=== PATIENT | female | born 1955 | race American Indian/Alaskan Native ===

== ENCOUNTER 2018-02-07 08:54 | Outpatient (CLI) | payer MEDICARE ==
--- NOTE | 2018-02-07 13:50 | Mammography Report ---
BONE DEXA:02/07/18 08:54:00 CLINICAL: Postmenopausal. No comparison. TECHNIQUE: Two site bone DEXA performed on an Hologic scanner. FINDINGS: The average BMD of the left forearm is 0.667g/cm squared with a T-score of +2.0 and a Z-score of +3.6. The average BMD of the left hip is 1.155g/cm squared with a T-score of +0.8 and a Z-score of +1.7. IMPRESSION: WHO classification: Normal with average fracture risk based on both left forearm and left hip measurements. RECOMMENDATION: Clinical correlation and routine screening. DEFINITIONS: BMD = Bone Mineral Density T-score = BMD related to mean peak bone mass of young adult (mean expressed in Standard Deviation) Z-score = Age matched BMD expressed in SD World Health Organization (WHO) Diagnostic Criteria Normal T-score > -1 SD Osteopenia T-score between -1 and -2.4 SD Osteoporosis T-score -2.5 SD or below NOTE: BMD is not the only risk factor for fracture. One should also consider factors such as the patient's age, risk of falling, previous osteoporotic fracture, family history of osteoporotic fractures, current smoker, and low body weight. Z-scores are not calculated if >80 years of age.
--- NOTE | 2018-02-07 16:10 | Mammography Report ---
BILATERAL DIGITAL SCREENING MAMMOGRAM with CAD: 02/07/18 CLINICAL: Routine screening. COMPARISON:None available. However, a prior mammogram was apparently done at [facility]. FINDINGS: The breasts are heterogeneously dense, which may obscure small masses. Bilateral asymmetries require comparison with the prior mammogram and possible additional imaging. No architectural distortion or suspicious calcifications. IMPRESSION: Bilateral asymmetries requiring further evaluation. BI-RADS CATEGORY: 0 -- Additional Evaluation Required RECOMMENDATION: Comparison with a previous mammogram. We will attempt to obtain a prior mammogram for comparison. If we do not obtain a prior mammogram within 30 days, a revised report will be issued recommending a recall for additional imaging. Please be advised that the patient should not schedule an appointment for return until adequate time (at least 2 weeks) has passed for us to obtain the prior mammogram. ACR BI-RADS MAMMOGRAPHIC CODES: 0 = Needs additional imaging evaluation; 1 = Negative; 2 = Benign; 3 = Probably benign; 4 = Suspicious; 5 = Malignant; 6 = Known biopsy-proven malignancy COMMENT: 1. Dense breast tissue, i.e., adenosis, fibrocystic changes, etc., may obscure an underlying neoplasm. 2. Approximately 10% of cancers are not detected with mammography. 3. A negative mammography report should not delay biopsy if a clinically suspicious mass is present. COMMENT: Patient follow-up letters are generated via our [employer] application.
== END 2018-02-07 08:55 | disposition home or self-care (01) ==
LOC: MAMMO 08:54
PROVIDERS: ATTEND Internal Medicine
DX: Z12.31 Encounter for screening mammogram for malignant neoplasm of breast (principal); Z13.820 Encounter for screening for osteoporosis; N64.89 Other specified disorders of breast; F17.210 Nicotine dependence, cigarettes, uncomplicated; I10 Essential (primary) hypertension; K21.9 Gastro-esophageal reflux disease without esophagitis; Z78.0 Asymptomatic menopausal state
CPT/HCPCS: 77067; 77080

== ENCOUNTER 2018-03-09 16:54 | Emergency (ER) | payer MEDICARE ==
[2018-03-09 17:02] VITALS: BP 167/100
[2018-03-09] MEDS ORDERED: PERCOCET 5/325 ONE (21:23)
[2018-03-09] MEDS ORDERED: PERCOCET 5/325 PO ONE (21:25)
--- NOTE | 2018-03-09 21:35 | Emergency Department Report ---
Abscess Boil HPI - HPI Chief Complaint: Skin/Abscess/Foreign Body Stated Complaint: ABDCESS/BOIL Time Seen by Provider: 03/09/18 21:01 Duration: 5 Days Location: Sacral/Pilonidal History: Yes Pain, Yes Purulent Drainage, Yes Previous History, No Fever, No Numbness, No Foreign Body, No Insect Bite HPI: 62-year-old -[place] female with a past medical history of hypertension comes in complaining of an abscess to her perineal area 5 days. Patient reports that she has a history of these but has not had one in quite a while. Patient reports that she's been doing warm Epsom salt soaks and she even got [id number] boil eases. Home Medications: Home Medications Medication Instructions Recorded Confirmed Last Taken Gabapentin [Gralise] 2 mg PO TID 03/10/16 03/10/16 Unknown Losartan/Hydrochlorothiazide 1 each PO DAILY 03/10/16 03/10/16 Unknown [Losartan-Hctz 50-12.5 mg Tab] Meloxicam [Mobic] 7.5 mg PO BID 03/10/16 03/10/16 Unknown amLODIPine [Norvasc] 10 mg PO DAILY 03/10/16 03/10/16 Unknown Previous Rx's Medication Instructions Recorded Last Taken Type Famotidine [Pepcid] 20 mg PO BID #60 tablet 06/01/15 Unknown Rx Tobramycin 0.3% [Tobrex] 1 drop OD Q8HR #1 bottle 03/10/16 Unknown Rx Cephalexin [Keflex] 500 mg PO BID #20 capsule 03/09/18 Unknown Rx Sulfamethoxazole/Trimethoprim 1 each PO BID #20 tablet 03/09/18 Unknown Rx [Bactrim DS TAB] traMADol [Ultram 50 MG tab] 50 mg PO Q6HR PRN #12 tablet 03/09/18 Unknown Rx Allergies/Adverse Reactions: Allergies Allergy/AdvReac Type Severity Reaction Status Date / Time No Known Allergies Allergy Unverified 05/21/13 13:47 ED Review of Systems ROS: Stated complaint: ABDCESS/BOIL Other details as noted in HPI Constitutional: denies: chills, fever Eyes: denies: eye pain, eye discharge, vision change ENT: denies: ear pain, throat pain Respiratory: denies: cough, shortness of breath, wheezing Cardiovascular: denies: chest pain, palpitations Endocrine: no symptoms reported Gastrointestinal: denies: abdominal pain, nausea, diarrhea Genitourinary: denies: urgency, dysuria, discharge Musculoskeletal: denies: back pain, joint swelling, arthralgia Skin: lesions Neurological: denies: headache, weakness, paresthesias Psychiatric: denies: anxiety, depression Hematological/Lymphatic: denies: easy bleeding, easy bruising ED Past Medical Hx - Past Medical History Hx Hypertension: Yes (diet/wt controlled) Additional medical history: Chronic back pain - Surgical History Additional Surgical History: Back surgery - Social History Smoking Status: Never Smoker Substance Use Type: None - Medications Home Medications: Home Medications Medication Instructions Recorded Confirmed Last Taken Type Famotidine [Pepcid] 20 mg PO BID #60 tablet 06/01/15 03/10/16 Unknown Rx Gabapentin [Gralise] 2 mg PO TID 03/10/16 03/10/16 Unknown History Losartan/Hydrochlorothiazide 1 each PO DAILY 03/10/16 03/10/16 Unknown History [Losartan-Hctz 50-12.5 mg Tab] Meloxicam [Mobic] 7.5 mg PO BID 03/10/16 03/10/16 Unknown History Tobramycin 0.3% [Tobrex] 1 drop OD Q8HR #1 bottle 03/10/16 Unknown Rx amLODIPine [Norvasc] 10 mg PO DAILY 03/10/16 03/10/16 Unknown History Cephalexin [Keflex] 500 mg PO BID #20 capsule 03/09/18 Unknown Rx Sulfamethoxazole/Trimethoprim 1 each PO BID #20 tablet 03/09/18 Unknown Rx [Bactrim DS TAB] traMADol [Ultram 50 MG tab] 50 mg PO Q6HR PRN #12 tablet 03/09/18 Unknown Rx ED Abscess Boil Physical Exam - Exam General: Vital signs noted. No distress. Alert and acting appropriately. Size: 5 cm Exam: Yes Tenderness, Yes Fluctuance, Yes Surrounding Cellulites/Erythema, Yes Normal Neurologic Exam, Yes Normal Circulation, No Heart Murmur I & D Note - I & D Note I & D Note: DATE OF PROCEDURE: 03/09/2018. PREOPERATIVE DIAGNOSES: 1.soft tissue infection. 2. soft tissue infection. POSTOPERATIVE DIAGNOSES: 1. Perineal abscess. 2. .........soft tissue infection. Infection appeared to be contained to subcutaneous tissue and there was no evidence of necrotizing soft tissue infection including myonecrosis. OPERATION PERFORMED: Incision and drainage of ..... soft tissue abscess. Provider: Amado Brown PA-C. ANESTHESIA: Local. DESCRIPTION OF PROCEDURE: The patient was prepped and draped. Seropurulent, somewhat bloody fluid was noted. The infection appeared contained to a golf ball-sized area in the subcutaneous tissues above the fascia. There was no evidence of myonecrosis, penetration of the fascia or significant extent along the fascia of the infection. We cleaned the area with Betadine. Dry dressings were applied. The patient appeared to tolerate the procedure well. ED Course Vital Signs 03/09/18 16:58 Temperature 98.7 F Pulse Rate 88 Respiratory 18 Rate Blood Pressure 167/100 O2 Sat by Pulse 100 Oximetry Critical care attestation.: If time is entered above; I have spent that time in minutes in the direct care of this critically ill patient, excluding procedure time. ED Disposition Clinical Impression: Abscess or cellulitis of perineum Disposition: DC-01 TO HOME OR SELFCARE Is pt being admited?: No Does the pt Need Aspirin: No Condition: Stable Instructions: Abscess (ED) Additional Instructions: Complete antibiotics as prescribed take pain medication as needed warm soaks of Epsom salts. Return to the emergency room sooner if abscess gets worse. Prescriptions: Cephalexin [Keflex] 500 mg PO BID #20 capsule Sulfamethoxazole/Trimethoprim [Bactrim DS TAB] 1 each PO BID #20 tablet traMADol [Ultram 50 MG tab] 50 mg PO Q6HR PRN #12 tablet PRN Reason: Pain Referrals: PRIMARY CARE, [Primary Care Provider] - 3-5 Days [facility] [Provider Group] - 3-5 Days
== END 2018-03-09 22:40 | disposition home or self-care (01) ==
LOC: ED 16:54
DX: L02.215 Cutaneous abscess of perineum (principal); I10 Essential (primary) hypertension; G89.29 Other chronic pain
CPT/HCPCS: 99282

== ENCOUNTER 2018-09-22 11:46 | Emergency (ER) | payer MEDICARE ==
--- NOTE | 2018-09-22 11:57 | Emergency Department Report ---
Blank Doc - Documentation Documentation: This is a 63-year-old female that presents with left shoulder pain x1 week. P atient denies any injuries. Agrees to heavy lifting prior to these symptoms. Denies any other complaints. This initial assessment diagnostic orders/clinical plan/treatment(s) is/are subject to change based on patient's health status, clinical progression and re- assessment by fellow clinical providers in the ED. Further treatment and workup at subsequent clinical providers discretion. Patient/guardians urged not to elope from ED s their condition may be serious if not clinically assessed and managed. Initial orders include: 1-Patient sent to [facility] for further evaluation and treatment 2- Xray
[2018-09-22 11:59] VITALS: BP 171/94
[2018-09-22] MEDS ORDERED: TORADOL IM ONE (12:08)
--- NOTE | 2018-09-22 12:12 | Emergency Department Report ---
ED Upper Extremity Inj HPI - General Chief Complaint: Shoulder Injury Stated Complaint: (L) SHOULDER PAIN Time Seen by Provider: 09/22/18 11:55 Source: patient Mode of arrival: Ambulatory Limitations: No Limitations - History of Present Illness Initial Comments: Patient is 63 years old female with history of hypertension, controlled with diet and exercise. Patient presented to the ER complaining of left shoulder pain for the last 1 week associated with some neck pain also. Patient stated that she was fine until she lifted heavy boxes just prior to the beginning of her current symptoms. Patient denies any chest pain or shortness of breath. No weakness numbness or tingling sensation. No fever cough or chills. MD Complaint: Injury to:: left, shoulder -: week(s) Other Extremity Injury: Shoulder: Left Other Injuries: neck Severity scale (0 -10): 7 Improves With: immobilization Worsens With: movement of extremity Context: injury, other (lifting heavy boxes) Associated Symptoms: denies other symptoms - Related Data Home Medications Medication Instructions Recorded Confirmed Last Taken Gabapentin [Gralise] 2 mg PO TID 03/10/16 03/10/16 Unknown Losartan/Hydrochlorothiazide 1 each PO DAILY 03/10/16 03/10/16 Unknown [Losartan-Hctz 50-12.5 mg Tab] Meloxicam [Mobic] 7.5 mg PO BID 03/10/16 03/10/16 Unknown amLODIPine [Norvasc] 10 mg PO DAILY 03/10/16 03/10/16 Unknown Previous Rx's Medication Instructions Recorded Last Taken Type Famotidine [Pepcid] 20 mg PO BID #60 tablet 06/01/15 Unknown Rx Tobramycin 0.3% [Tobrex] 1 drop OD Q8HR #1 bottle 03/10/16 Unknown Rx Cephalexin [Keflex] 500 mg PO BID #20 capsule 03/09/18 Unknown Rx Sulfamethoxazole/Trimethoprim 1 each PO BID #20 tablet 03/09/18 Unknown Rx [Bactrim DS TAB] traMADol [Ultram 50 MG tab] 50 mg PO Q6HR PRN #12 tablet 03/09/18 Unknown Rx Allergies Allergy/AdvReac Type Severity Reaction Status Date / Time No Known Allergies Allergy Unverified 05/21/13 13:47 ED Review of Systems ROS: Stated complaint: (L) SHOULDER PAIN Other details as noted in HPI Comment: All other systems reviewed and negative Constitutional: denies: chills, fever Respiratory: denies: cough, orthopnea, shortness of breath, SOB with exertion Cardiovascular: denies: chest pain, palpitations Gastrointestinal: denies: abdominal pain, nausea, vomiting, diarrhea, constipation, hematemesis Musculoskeletal: denies: back pain Neurological: denies: headache, weakness, numbness, paresthesias, confusion, abnormal gait ED Past Medical Hx - Past Medical History Hx Hypertension: Yes (diet/wt controlled) Additional medical history: Chronic back pain - Surgical History Additional Surgical History: Back surgery - Social History Smoking Status: Never Smoker Substance Use Type: None - Medications Home Medications: Home Medications Medication Instructions Recorded Confirmed Last Taken Type Famotidine [Pepcid] 20 mg PO BID #60 tablet 06/01/15 03/10/16 Unknown Rx Gabapentin [Gralise] 2 mg PO TID 03/10/16 03/10/16 Unknown History Losartan/Hydrochlorothiazide 1 each PO DAILY 03/10/16 03/10/16 Unknown History [Losartan-Hctz 50-12.5 mg Tab] Meloxicam [Mobic] 7.5 mg PO BID 03/10/16 03/10/16 Unknown History Tobramycin 0.3% [Tobrex] 1 drop OD Q8HR #1 bottle 03/10/16 Unknown Rx amLODIPine [Norvasc] 10 mg PO DAILY 03/10/16 03/10/16 Unknown History Cephalexin [Keflex] 500 mg PO BID #20 capsule 03/09/18 Unknown Rx Sulfamethoxazole/Trimethoprim 1 each PO BID #20 tablet 03/09/18 Unknown Rx [Bactrim DS TAB] traMADol [Ultram 50 MG tab] 50 mg PO Q6HR PRN #12 tablet 03/09/18 Unknown Rx ED Physical Exam - General Limitations: No Limitations General appearance: alert, in no apparent distress - Head Head exam: Present: atraumatic, normocephalic, normal inspection - Eye Eye exam: Present: normal appearance, PERRL - ENT ENT exam: Present: normal exam, normal orophraynx, mucous membranes moist - Neck Neck exam: Present: normal inspection, full ROM. Absent: tenderness, meningismus, lymphadenopathy, thyromegaly - Respiratory Respiratory exam: Present: normal lung sounds bilaterally. Absent: respiratory distress, wheezes, rales, rhonchi, chest wall tenderness, accessory muscle use, decreased breath sounds, prolonged expiratory - Cardiovascular Cardiovascular Exam: Present: regular rate, normal rhythm, normal heart sounds - GI/Abdominal GI/Abdominal exam: Present: soft, normal bowel sounds. Absent: distended, tenderness, guarding, rebound, rigid, organomegaly, mass, bruit, pulsatile mass, hernia - Extremities Exam Extremities exam: Present: normal inspection, full ROM, normal capillary refill. Absent: pedal edema, calf tenderness - Expanded Upper Extremity Exam Left Shoulder Exam: Present: normal inspection, tenderness. Absent: full ROM (decreased range of motion) Upper Arm exam: Present: normal inspection, full ROM Elbow exam: Present: normal inspection, full ROM. Absent: tenderness - Back Exam Back exam: Present: normal inspection, full ROM. Absent: tenderness, CVA tenderness (R), CVA tenderness (L), muscle spasm, paraspinal tenderness, vertebral tenderness - Neurological Exam Neurological exam: Present: alert, oriented X3, CN II-XII intact, normal gait, reflexes normal - Skin Skin exam: Present: warm, intact, normal color ED Course Vital Signs 09/22/18 11:57 Temperature 97.6 F Pulse Rate 66 Respiratory 16 Rate Blood Pressure 171/94 O2 Sat by Pulse 99 Oximetry ED Medical Decision Making - Radiology Data Radiology results: report reviewed Cervical spine x-ray showed mild spondylosis, no acute injury. Left shoulder x-ray showed osteoarthritis. Critical care attestation.: If time is entered above; I have spent that time in minutes in the direct care of this critically ill patient, excluding procedure time. ED Disposition Clinical Impression: Osteoarthritis, Neck pain, Shoulder pain, acute Disposition: DC-01 TO HOME OR SELFCARE Is pt being admited?: No Condition: Stable Instructions: Osteoarthritis (ED), Cervical Radiculopathy (ED) Referrals: ELEUTERIO MANSFIELD [Primary Care Provider] - 3-5 Days
--- NOTE | 2018-09-22 12:27 | XRay Report ---
LEFT SHOULDER: History: Pain. Moderate osteoarthritic changes are identified at the glenohumeral joint. There is no evidence for fracture, dislocation or bone lesion. The soft tissues are unremarkable. IMPRESSION: Osteoarthritis.
--- NOTE | 2018-09-22 12:28 | XRay Report ---
CERVICAL SPINE, 5 views: History: Neck injury. Findings: The vertebral bodies, disk spaces, posterior elements and prevertebral soft tissues are intact. The dens is intact. No acute fracture or malalignment is identified. [id number] degenerative disc narrowing is noted at C5-6 and C6-7. Moderate right neural foraminal narrowing is suspected at C5-6 on the oblique images. The remaining levels appear widely patent. Impression: Mild cervical spondylosis as described. No evidence for acute injury to the cervical spine.
== END 2018-09-22 13:26 | disposition home or self-care (01) ==
LOC: ED 11:46
DX: M19.012 Primary osteoarthritis, left shoulder (principal); M54.2 Cervicalgia; I10 Essential (primary) hypertension; M54.9 Dorsalgia, unspecified; G89.29 Other chronic pain
CPT/HCPCS: 72050; 73030; 96372; 99283; J1885

== ENCOUNTER 2019-09-20 11:16 | Observation (INO) | payer MEDICARE ==
[2019-09-20] MEDS ORDERED: ONDANSETRON 4 MG/2 ML INJ IV ONE (11:49)
[2019-09-20] MEDS ORDERED: MORPHINE 4 MG/1 ML INJ IV ONE (11:49)
[2019-09-20] MEDS ORDERED: SODIUM CHLORIDE 0.9% 1000 ML 1,000 ML IV ONE (11:49)
--- NOTE | 2019-09-20 12:13 | Event Note ---
Face to Face: For this encounter I have reviewed the PA/BULK SEALER documentation, treatment plan, medical decision making, and I had face to face time with this patient. Mrs. Daniels is a 64 yo female with hx of GI bleed, gastric ulcer, hypertension, GERD who presents with epigastric abdominal pain and dark stools. She has had epigastric sharp pain for several days. Dark stools began today. Denies vomiting. Please see my colleague's full history and physical. I reviewed electronic record. Patient was treated last month for GI bleed due to gastric ulcer. She required transfusion. Today she has Hemoccult positive stool. I provided supervision and treatment recommendations. Patient will be admitted to hospital service with GI consultation.
[2019-09-20] MEDS ORDERED: PANTOPRAZOLE 40 MG INJ IV ONE (12:15)
--- NOTE | 2019-09-20 12:16 | Emergency Department Report ---
ED GI Bleed HPI - General Chief complaint: GI Bleed Stated complaint: BOWELS DRAK, Time Seen by Provider: 09/20/19 11:36 Source: patient, family Mode of arrival: Wheelchair Limitations: No Limitations - History of Present Illness Initial comments: 64-year-old -[place] female patient with history of hypertension and PUD presents with complaints of black watery stools and one episode of dark vomit x last night. Patient was admitted recently on 08/17/2019 for GI bleed and found to have a bleeding antral ulcer. Ulcer was surgically repaired by Dr. Armstrong. Though she states her vomit was dark, she denies it appearing like coffee ground emesis or bright red blood. She also denies any hematochezia, fever, syncope, or dysuria/urinary frequency.she rates her pain as a 10/10 in severity and states it is diffuse across her entire abdomen and radiates bilaterally to her flank.. She reports that she ran out of her prescription Protonix 3 days ago. She denies being on blood thinners. MD complaint: melena -: Sudden Severity scale (0 -10): 10 Quality: cramping, sharp, constant Consistency: constant Context: history of GI bleed Associated Symptoms: abdominal pain, nausea, vomiting. denies: fever/chills, shortness of breath - Related Data Home Medications Medication Instructions Recorded Confirmed Last Taken Gabapentin [Gralise] 2 mg PO TID 03/10/16 08/17/19 Unknown amLODIPine 10 mg PO DAILY 03/10/16 08/17/19 Unknown Previous Rx's Medication Instructions Recorded Last Taken Type traMADoL [Ultram 50 MG tab] 50 mg PO Q6HR PRN #12 tablet 03/09/18 Unknown Rx Pantoprazole [Protonix] 40 mg PO BID #60 tablet 08/20/19 Unknown Rx Allergies Allergy/AdvReac Type Severity Reaction Status Date / Time No Known Allergies Allergy Unverified 05/21/13 13:47 ED Review of Systems ROS: Stated complaint: BOWELS DRAK, Other details as noted in HPI Constitutional: other. denies: chills, diaphoresis, fever, malaise Respiratory: denies: cough, shortness of breath Cardiovascular: denies: chest pain Endocrine: denies: excessive sweating Gastrointestinal: abdominal pain, nausea, vomiting, diarrhea, melena. denies: constipation, hematemesis, hematochezia Genitourinary: denies: urgency, dysuria, frequency, hematuria Musculoskeletal: denies: myalgia Skin: denies: rash, lesions Neurological: denies: headache, weakness, numbness, paresthesias ED Past Medical Hx - Past Medical History Previous Medical History?: Yes Hx Hypertension: Yes Hx Congestive Heart Failure: No Hx Diabetes: No Hx Asthma: No Hx COPD: No Additional medical history: Chronic back pain, Stomach ulcers - Surgical History Past Surgical History?: Yes Additional Surgical History: Back surgery - Social History Smoking Status: Never Smoker Substance Use Type: None - Medications Home Medications: Home Medications Medication Instructions Recorded Confirmed Last Taken Type Gabapentin [Gralise] 2 mg PO TID 03/10/16 08/17/19 Unknown History amLODIPine 10 mg PO DAILY 03/10/16 08/17/19 Unknown History traMADoL [Ultram 50 MG tab] 50 mg PO Q6HR PRN #12 tablet 03/09/18 08/17/19 Unknown Rx Pantoprazole [Protonix] 40 mg PO BID #60 tablet 08/20/19 Unknown Rx ED Physical Exam - General Limitations: No Limitations General appearance: alert, other (Appears uncomfortable) - Head Head exam: Present: atraumatic, normocephalic - Eye Eye exam: Present: normal appearance - ENT ENT exam: Present: mucous membranes moist - Neck Neck exam: Present: normal inspection - Respiratory Respiratory exam: Present: normal lung sounds bilaterally. Absent: respiratory distress - Cardiovascular Cardiovascular Exam: Present: regular rate, normal rhythm. Absent: systolic murmur, diastolic murmur, rubs, gallop - GI/Abdominal GI/Abdominal exam: Present: soft, tenderness (Generalized), guarding. Absent: distended, rigid - Extremities Exam Extremities exam: Present: normal inspection - Back Exam Back exam: Present: normal inspection - Neurological Exam Neurological exam: Present: alert, oriented X3 - Psychiatric Psychiatric exam: Present: normal affect, normal mood - Skin Skin exam: Present: warm, dry, intact, normal color. Absent: rash ED Course Vital Signs 09/20/19 09/20/19 09/20/19 11:21 11:48 12:00 Temperature 98.6 F Pulse Rate 90 80 75 Respiratory 18 20 14 Rate Blood Pressure 157/94 179/93 158/85 O2 Sat by Pulse 100 100 100 Oximetry 09/20/19 09/20/19 09/20/19 12:15 12:30 13:00 Temperature Pulse Rate 76 81 79 Respiratory 10 L 16 15 Rate Blood Pressure 168/87 169/96 O2 Sat by Pulse 100 100 100 Oximetry 09/20/19 09/20/19 09/20/19 13:15 13:35 13:45 Temperature Pulse Rate 80 76 Respiratory 16 14 Rate Blood Pressure 164/141 169/96 155/86 O2 Sat by Pulse 100 100 100 Oximetry ED Medical Decision Making - Lab Data Result diagrams: 09/20/19 12:07 09/20/19 12:07 Lab Results 09/20/19 09/20/19 09/20/19 Range/Units 12:06 12:07 12:07 WBC 5.0 (4.5-11.0) K/mm3 RBC 3.46 L (3.65-5.03) M/mm3 Hgb 11.5 (10.1-14.3) gm/dl Hct 34.5 (30.3-42.9) % MCV 100 H (79-97) fl MCH 33 H (28-32) pg MCHC 33 (30-34) % RDW 15.5 H (13.2-15.2) % Plt Count 201 (140-440) K/mm3 Lymph % (Auto) 24.8 (13.4-35.0) % [place] % (Auto) 8.7 H (0.0-7.3) % Eos % (Auto) 4.4 H (0.0-4.3) % Baso % (Auto) 0.5 (0.0-1.8) % Lymph # 1.2 (1.2-5.4) K/mm3 Benson # 0.4 (0.0-0.8) K/mm3 Eos # 0.2 (0.0-0.4) K/mm3 Baso # 0.0 (0.0-0.1) K/mm3 Seg Neutrophils % 61.6 (40.0-70.0) % Seg Neutrophils # 3.1 (1.8-7.7) K/mm3 PT 12.5 (12.2-14.9) Sec. INR 0.92 (0.87-1.13) APTT 24.2 (24.2-36.6) Sec. Sodium 142 (137-145) mmol/L Potassium 4.1 (3.6-5.0) mmol/L Chloride 109.6 H (98-107) mmol/L Carbon Dioxide 16 L (22-30) mmol/L Anion Gap 21 mmol/L BUN 13 (7-17) mg/dL Creatinine 0.8 (0.7-1.2) mg/dL Estimated GFR > 60 ml/min BUN/Creatinine Ratio 16 % Glucose 94 (65-100) mg/dL Calcium 9.4 (8.4-10.2) mg/dL Total Bilirubin 0.20 (0.1-1.2) mg/dL AST 18 (5-40) units/L ALT 11 (7-56) units/L Alkaline Phosphatase 81 (35-129) units/L Total Protein 7.5 (6.3-8.2) g/dL Albumin 4.2 (3.9-5) g/dL Albumin/Globulin Ratio 1.3 % Lipase (13-60) units/L Urine Color (Yellow) Urine Turbidity (Clear) Urine pH (5.0-7.0) Ur Specific [place] (1.003-1.030) Urine Protein (Negative) mg/dL Urine Glucose (UA) (Negative) mg/dL Urine Ketones (Negative) mg/dL Urine Blood (Negative) Urine Nitrite (Negative) Urine Bilirubin (Negative) Urine Urobilinogen (<2.0) mg/dL Ur Leukocyte Esterase (Negative) Urine WBC (Auto) (0.0-6.0) /HPF Urine RBC (Auto) (0.0-6.0) /HPF U Epithel Cells (Auto) (0-13.0) /HPF 09/20/19 09/20/19 Range/Units 12:07 13:17 WBC (4.5-11.0) K/mm3 RBC (3.65-5.03) M/mm3 Hgb (10.1-14.3) gm/dl Hct (30.3-42.9) % MCV (79-97) fl MCH (28-32) pg MCHC (30-34) % RDW (13.2-15.2) % Plt Count (140-440) K/mm3 Lymph % (Auto) (13.4-35.0) % [place] % (Auto) (0.0-7.3) % Eos % (Auto) (0.0-4.3) % Baso % (Auto) (0.0-1.8) % Lymph # (1.2-5.4) K/mm3 [place] # (0.0-0.8) K/mm3 Eos # (0.0-0.4) K/mm3 Baso # (0.0-0.1) K/mm3 Seg Neutrophils % (40.0-70.0) % Seg Neutrophils # (1.8-7.7) K/mm3 PT (12.2-14.9) Sec. INR (0.87-1.13) APTT (24.2-36.6) Sec. Sodium (137-145) mmol/L Potassium (3.6-5.0) mmol/L Chloride (98-107) mmol/L Carbon Dioxide (22-30) mmol/L Anion Gap mmol/L BUN (7-17) mg/dL Creatinine (0.7-1.2) mg/dL Estimated GFR ml/min BUN/Creatinine Ratio % Glucose (65-100) mg/dL Calcium (8.4-10.2) mg/dL Total Bilirubin (0.1-1.2) mg/dL AST (5-40) units/L ALT (7-56) units/L Alkaline Phosphatase (35-129) units/L Total Protein (6.3-8.2) g/dL Albumin (3.9-5) g/dL Albumin/Globulin Ratio % Lipase 45 (13-60) units/L Urine Color Yellow (Yellow) Urine Turbidity Clear (Clear) Urine pH 8.0 H (5.0-7.0) Ur Specific [place] 1.012 (1.003-1.030) Urine Protein <15 mg/dl (Negative) mg/dL Urine Glucose (UA) Neg (Negative) mg/dL Urine Ketones Neg (Negative) mg/dL Urine Blood Neg (Negative) Urine Nitrite Neg (Negative) Urine Bilirubin Neg (Negative) Urine Urobilinogen < 2.0 (<2.0) mg/dL Ur Leukocyte Esterase Neg (Negative) Urine WBC (Auto) 1.0 (0.0-6.0) /HPF Urine RBC (Auto) 1.0 (0.0-6.0) /HPF U Epithel Cells (Auto) < 1.0 (0-13.0) /HPF - Radiology Data Radiology results: report reviewed CT ABDOMEN AND PELVIS WITH CONTRAST INDICATION / CLINICAL INFORMATION: melena, recent surgery and bleeding ulcers. TECHNIQUE: Axial CT images were obtained through the abdomen and pelvis after 100 mL Omnipaque [address] scans at this location are performed using CT dose reduction for ALARA by means of automated exposure control. COMPARISON: CT dated 08/17/19 FINDINGS: LOWER CHEST: No significant abnormality. LIVER: No significant abnormality. GALLBLADDER: No significant abnormality. BILE DUCTS: No significant abnormality. PANCREAS: No significant abnormality. SPLEEN: No significant abnormality. ADRENALS: No significant abnormality. RIGHT KIDNEY and URETER: No significant abnormality. LEFT KIDNEY and URETER: No significant abnormality. STOMACH and SMALL BOWEL: No significant abnormality. COLON: Mild colonic diverticulosis without acute inflammation. APPENDIX: No significant abnormality. PERITONEUM: No free fluid. No free air. No fluid collection. LYMPH NODES: No significant adenopathy. AORTA and ARTERIES: No significant abnormality. IVC and VEINS: No significant abnormality. URINARY BLADDER: No significant abnormality. REPRODUCTIVE ORGANS: Uterus is absent. No significant adnexal abnormality. ADDITIONAL FINDINGS: None. SKELETAL SYSTEM: Lumbar postoperative degenerative findings but no acute osseous abnormality. IMPRESSION: 1. No inflammatory process or bowel obstruction. No acute findings. - Medical Decision Making 64-year-old female patient here today with complaints of black stools x yesterday. Patient was admitted 1 month ago for a bleeding antral ulcer which was repaired by Dr. Armstrong. Positive fecal occult noted on exam. Hemoglobin is 11.5. CT abdomen is normal. Vitals are stable. Discussed patient with Dr. Manuel, GI-agrees with admission and will consult on patient. Patient to be admitted by Dr. Koenig. Critical care attestation.: If time is entered above; I have spent that time in minutes in the direct care of this critically ill patient, excluding procedure time. ED Disposition Clinical Impression: GI bleed Qualifiers: GI bleed type/associated pathology: melena Qualified Code(s): K92.1 - Melena Disposition: OP ADMIT IP TO THIS HOSP Is pt being admited?: Yes Condition: Stable Forms: Accompanied Note
[2019-09-20 12:25] LABS: Basophils % (Auto) 0.5 % (0.0-1.8); Eosinophils # (Auto) 0.2 K/mm3 (0.0-0.4); Eosinophils % (Auto) 4.4 % (0.0-4.3); Hematocrit 34.5 % (30.3-42.9); Hemoglobin 11.5 gm/dl (10.1-14.3); Lymphocytes # (Auto) 1.2 K/mm3 (1.2-5.4); Lymphocytes % (Auto) 24.8 % (13.4-35.0); Mean Corpuscular HGB Conc 33 % (30-34); Mean Corpuscular Volume 100 fl (79-97); Monocytes # (Auto) 0.4 K/mm3 (0.0-0.8); Monocytes % (Auto) 8.7 % (0.0-7.3); Platelet Count 201 K/mm3 (140-440); Red Blood Count 3.46 M/mm3 (3.65-5.03); Red Cell Distribution Width 15.5 % (13.2-15.2)
[2019-09-20 12:38] LABS: INR 0.92 (0.87-1.13)
[2019-09-20 12:39] LABS: Partial Thromboplastin Time 24.2 Sec. (24.2-36.6)
[2019-09-20 12:53] LABS: Alanine Aminotransferase 11 units/L (7-56); Albumin 4.2 g/dL (3.9-5); BUN/Creatinine Ratio 16; Blood Urea Nitrogen 13 mg/dL (7-17); Calcium 9.4 mg/dL (8.4-10.2); Hemolysis Index 5
[2019-09-20 13:40] LABS: Bilirubin,Urine NEG (Negative); Blood,Urine NEG (Negative); Color,Urine Yellow (Yellow); Protein,Urine <15 mg/dL mg/dL (Negative); Urobilinogen,Urine < 2.0 mg/dL (<2.0)
[2019-09-20] MEDS: PANTOPRAZOLE 80 MG in SODIUM CHLORIDE 0.9% 100 ML IV SCH (14:13)
--- NOTE | 2019-09-20 14:13 | Cat Scan Report ---
CT ABDOMEN AND PELVIS WITH CONTRAST INDICATION / CLINICAL INFORMATION: melena, recent surgery and bleeding ulcers. TECHNIQUE: Axial CT images were obtained through the abdomen and pelvis after 100 mL Omnipaque [address] scans at this location are performed using CT dose reduction for ALARA by means of automated exposure control. COMPARISON: CT dated 08/17/19 FINDINGS: LOWER CHEST: No significant abnormality. LIVER: No significant abnormality. GALLBLADDER: No significant abnormality. BILE DUCTS: No significant abnormality. PANCREAS: No significant abnormality. SPLEEN: No significant abnormality. ADRENALS: No significant abnormality. RIGHT KIDNEY and URETER: No significant abnormality. LEFT KIDNEY and URETER: No significant abnormality. STOMACH and SMALL BOWEL: No significant abnormality. COLON: Mild colonic diverticulosis without acute inflammation. APPENDIX: No significant abnormality. PERITONEUM: No free fluid. No free air. No fluid collection. LYMPH NODES: No significant adenopathy. AORTA and ARTERIES: No significant abnormality. IVC and VEINS: No significant abnormality. URINARY BLADDER: No significant abnormality. REPRODUCTIVE ORGANS: Uterus is absent. No significant adnexal abnormality. ADDITIONAL FINDINGS: None. SKELETAL SYSTEM: Lumbar postoperative degenerative findings but no acute osseous abnormality. IMPRESSION: 1. No inflammatory process or bowel obstruction. No acute findings. Signer Name: Wero Bucio MD Signed: 09/20/2019 2:09 PM Workstation Name: [id number]
[2019-09-20] MEDS ORDERED: ONDANSETRON 4 MG/2 ML INJ IV PRN (14:20)
[2019-09-20] MEDS ORDERED: ALBUTEROL 2.5 MG/3 ML NEBU IH PRN (14:20)
[2019-09-20] MEDS ORDERED: ACETAMINOPHEN 325 MG TAB PO PRN (14:20)
--- NOTE | 2019-09-20 14:22 | History and Physical Report ---
History of Present Illness Chief complaint: My stomach has been hurting and I ran out of my stomach medication History of present illness: 64 YO Female with HTN, Chronic Pain Syndrome, LDD, PUD, medication noncompliance presents to ED for evaluation. Patient states that she has experienced dark stools as well as dark vomiting over the past 1 day with concomitant abdominal pain over the last 1 day with progressively worsening symptoms over the same timeframe. Patient states that she ran out of her Protonix 3 days ago. Patient also reports abdominal pain over the last 1 day. Patient states that pain is 10 out of 10, diffuse, constant, radiates to bilateral flanks, without exacerbating or alleviating factors. Patient transported to [facility] via private vehicle. Patient seen and evaluated in the emergency department. Lab and imaging studies reviewed. Patient is found to be Hemoccult positive. Patient found to have symptoms consistent with GI bleed. Patient admitted to [facility] unit for medical stabilization due to increased risk of decompensation. Patient hemoglobin stable at time of admission. Patient denies fever, chills, chest pain, palpitations, productive cough, ingestion of food/water from new or different sources, or recent ill contacts. GI team consulted in ED and the patient is pending intervention as per GI team.. Prior admission on 08/17/2019 reviewed. All listed medication has been reconciled at time of admission. Advanced care planning conducted in ED. Past History Past Medical History: hypertension, other (See HPI) Past Surgical History: Other (Back surgery) Social history: . denies: smoking, alcohol abuse, prescription drug abuse Family history: hypertension Medications and Allergies Allergies Allergy/AdvReac Type Severity Reaction Status Date / Time No Known Allergies Allergy Unverified 05/21/13 13:47 Home Medications Medication Instructions Recorded Confirmed Last Taken Type Gabapentin [Gralise] 2 mg PO TID 03/10/16 08/17/19 Unknown History amLODIPine 10 mg PO DAILY 03/10/16 08/17/19 Unknown History traMADoL [Ultram 50 MG tab] 50 mg PO Q6HR PRN #12 tablet 03/09/18 08/17/19 Unknown Rx Pantoprazole [Protonix] 40 mg PO BID #60 tablet 08/20/19 Unknown Rx Active Meds: Active Medications Pantoprazole Sodium 80 mg/ (Sodium Chloride) 100 mls @ 10 mls/hr IV DIRECT SHU Last Admin: 09/20/19 14:13 Dose: 8 mg/hr, 10 mls/hr Documented by: Review of Systems Constitutional: no weight loss, no weight gain, no fever, no chills Ears, nose, mouth and throat: no ear pain, no ear discharge, no tinnitis, no decreased hearing, no nose pain, no nasal congestion Breasts: no change in shape, no swelling, no mass Cardiovascular: no chest pain, no orthopnea, no edema Respiratory: no cough, no cough with sputum, no excessive sputum, no hemoptysis, no shortness of breath Gastrointestinal: abdominal pain, hematemesis, melena, no loss of appetite, no early satiety Genitourinary Female: no pelvic pain, no flank pain, no menorrhagia, no dysuria, no urinary frequency, no urgency Rectal: no pain, no incontinence, no bleeding Musculoskeletal: low back pain, no neck stiffness, no neck pain, no shooting arm pain, no arm numbness/tingling Integumentary: no rash, no pruritis, no redness, no sores, no wounds Neurological: no head injury, no transient paralysis, no paralysis, no weakness, no parathesias, no numbness, no tingling, no syncope, no tremors Psychiatric: no anxiety, no memory loss, no change in sleep habits, no sleep disturbances, no hypersomnia, no change in appetite, no change in libido, no campa icidal ideation, no disorientation Endocrine: no cold intolerance, no heat intolerance, no polyphagia, no excessive thirst Hematologic/Lymphatic: no easy bruising, no easy bleeding, no lymphadenopathy, no lymphedema Allergic/Immunologic: no urticaria, no allergic rhinitis, no persistent infections, no anaphylaxis, no angioedema Exam - Constitutional Vitals: Temp Pulse Resp BP Pulse Ox 98.6 F 76 14 155/86 100 09/20/19 11:21 09/20/19 13:35 09/20/19 13:45 09/20/19 13:45 09/20/19 13:45 General appearance: Present: mild distress - EENT Eyes: Present: PERRL ENT: hearing intact, clear oral mucosa - Neck Neck: Present: supple, normal ROM - Respiratory Respiratory effort: normal Respiratory: bilateral: CTA - Cardiovascular Heart Sounds: Present: S1 & S2. Absent: rub, click - Extremities Extremities: pulses symmetrical, No edema Peripheral Pulses: within normal limits - Abdominal General gastrointestinal: Present: soft, non-tender, non-distended, normal bowel sounds Female genitourinary: Present: normal - Integumentary Integumentary: Present: clear, warm, dry - Musculoskeletal Musculoskeletal: gait normal, strength equal bilaterally - Psychiatric Psychiatric: appropriate mood/affect, intact judgment & insight - Neurologic Neurologic: CNII-XII intact, moves all extremities Results - Labs CBC & Chem 7: 09/20/19 12:07 09/20/19 12:07 Labs: Abnormal lab results 09/20/19 09/20/19 09/20/19 Range/Units 12:07 12:07 13:17 RBC 3.46 L (3.65-5.03) M/mm3 MCV 100 H (79-97) fl MCH 33 H (28-32) pg RDW 15.5 H (13.2-15.2) % [place] % (Auto) 8.7 H (0.0-7.3) % Eos % (Auto) 4.4 H (0.0-4.3) % Chloride 109.6 H (98-107) mmol/L Carbon Dioxide 16 L (22-30) mmol/L Urine pH 8.0 H (5.0-7.0) Assessment and Plan - Patient Problems (1) GI bleed Current Visit: Yes Status: Acute Qualifiers: GI bleed type/associated pathology: melena Qualified Code(s): K92.1 - Melena Plan to address problem: Admit to [facility] unit, serial CBC, IV PPI therapy, GI team consulted in ED, IV fluid resuscitation therapy, supportive care, repeat CBC in a.m. Transfuse PRBC if hemoglobin declines more than 2 g on successive CBC measurements. (2) Peptic ulcer disease Current Visit: Yes Status: Acute Plan to address problem: PPI therapy, GI team consulted in ED, endoscopy as per GI team. (3) Noncompliance with medication regimen Current Visit: Yes Status: Acute Plan to address problem: Patient counseled regarding medication, noncompliance. Patient acknowledges understanding risks of medication noncompliance (4) Abdominal pain Current Visit: No Status: Acute Qualifiers: Abdominal location: generalized Qualified Code(s): R10.84 - Generalized abdominal pain Plan to address problem: Supportive care, IV PPI therapy, CT abdomen pelvis: No acute findings. (5) Hypertensive urgency Current Visit: No Status: Acute Plan to address problem: Monitor blood pressure every shift, IV hydralazine as needed for systolic blood pressure greater than 155. (6) DVT prophylaxis Current Visit: Yes Status: Acute Plan to address problem: SCD to bilateral lower extremities while in bed, patient is ambulatory. (7) Advance care planning Current Visit: Yes Status: Acute Plan to address problem: Patient is full code, disease education conducted, patient and sister a cknowledge understanding and agreement with care plan. +30 minutes.
[2019-09-20] MEDS ORDERED: traMADol 50 MG TAB PO PRN (14:45)
[2019-09-20] MEDS ORDERED: hydrALAZINE 20 MG/1 ML INJ IV PRN (15:11)
[2019-09-20] MEDS: MORPHINE 2 MG/1 ML INJ IV PRN ×2 (16:47→20:49)
[2019-09-20] MEDS ORDERED: GABAPENTIN PO SCH (20:00)
[2019-09-20] MEDS: GABAPENTIN 300 MG CAP PO SCH (23:14)
[2019-09-21 07:42] LABS: Basophils % (Auto) 0.6 % (0.0-1.8); Eosinophils # (Auto) 0.2 K/mm3 (0.0-0.4); Eosinophils % (Auto) 6.2 % (0.0-4.3); Hematocrit 34.1 % (30.3-42.9); Hemoglobin 11.5 gm/dl (10.1-14.3); Lymphocytes % (Auto) 30.4 % (13.4-35.0); Mean Corpuscular HGB Conc 34 % (30-34); Mean Corpuscular Volume 99 fl (79-97); Monocytes # (Auto) 0.3 K/mm3 (0.0-0.8); Monocytes % (Auto) 8.6 % (0.0-7.3); Platelet Count 185 K/mm3 (140-440); Red Blood Count 3.45 M/mm3 (3.65-5.03); Red Cell Distribution Width 15.4 % (13.2-15.2)
[2019-09-21] MEDS ORDERED: SODIUM CHLORIDE 0.9% 1000 ML 1,000 ML IV SCH (07:45)
--- NOTE | 2019-09-21 08:08 | Progress Note ---
Assessment and Plan Assessment and plan: --GI bleeding/melena: N.p.o. status, IV Protonix Patient's H&H and vitals are within normal range GI evaluated the patient, possible EGD today, monitor H&H, transfuse as needed --H/O Peptic ulcer disease; Patient is noncompliant with PPI therapy IV Protonix --Abdominal pain; secondary to peptic ulcer disease and GI bleeding IV Protonix, supportive care --Medical noncompliance; patient strongly advised to comply with medications and diet Verbalized understanding --Hypertensive urgency; present on admission Blood pressures moderate control, continue current antihypertensives PRN medications --DVT prophylaxis; SCDs No pharmacologic anticoagulation in view of GI bleeding --Full CODE STATUS Monitor closely and adjust management as needed Follow GI evaluation and recommendations Disposition; follow EGD , if negative and patient is stable May be discharged home History Interval history: Patient seen and examined at the bedside Patient's chart and other medical records reviewed Mild black-colored stool. Patient has history of peptic ulcer disease GI evaluated planning endoscopy Vital signs noted Hospitalist Physical - Constitutional Vitals: Temp Pulse Resp BP Pulse Ox 97.3 F L 71 20 141/84 98 09/21/19 02:34 09/21/19 03:07 09/21/19 02:34 09/21/19 02:34 09/21/19 03:07 General appearance: Present: mild distress, well-nourished - EENT Eyes: Present: PERRL, EOM intact - Neck Neck: Present: supple, normal ROM - Respiratory Respiratory effort: normal Respiratory: bilateral: diminished, negative: rales, rhonchi, wheezing - Cardiovascular Rhythm: regular Heart Sounds: Present: S1 & S2 - Extremities Extremities: no ischemia, No edema - Abdominal General gastrointestinal: soft, non-tender, non-distended, normal bowel sounds - Integumentary Integumentary: Present: clear, warm - Psychiatric Psychiatric: appropriate mood/affect, cooperative - Neurologic Neurologic: moves all extremities ROSAURA score - Rosaura Score Age > 65: (0) No Aspirin use within the Past 7 Days: (0) No 3 or more CAD Risk Factors: (1) Yes 2 or more Angina events in past 24 hrs: (1) Yes Known CAD with more than 50% Stenosis: (0) No Elevated Cardiac Markers: (0) No ST Deviation Greater than 0.5mm: (0) No ROSAURA Score: 2 Results - Labs CBC & Chem 7: 09/21/19 07:00 09/21/19 07:00 Labs: Laboratory Last Values WBC 3.4 K/mm3 (4.5-11.0) L 09/21/19 07:00 RBC 3.45 M/mm3 (3.65-5.03) L 09/21/19 07:00 Hgb 11.5 gm/dl (10.1-14.3) 09/21/19 07:00 Hct 34.1 % (30.3-42.9) 09/21/19 07:00 MCV 99 fl (79-97) H 09/21/19 07:00 MCH 33 pg (28-32) H 09/21/19 07:00 MCHC 34 % (30-34) 09/21/19 07:00 RDW 15.4 % (13.2-15.2) H 09/21/19 07:00 Plt Count 185 K/mm3 (140-440) 09/21/19 07:00 Lymph % (Auto) 30.4 % (13.4-35.0) 09/21/19 07:00 [place] % (Auto) 8.6 % (0.0-7.3) H 09/21/19 07:00 Eos % (Auto) 6.2 % (0.0-4.3) H 09/21/19 07:00 Baso % (Auto) 0.6 % (0.0-1.8) 09/21/19 07:00 Lymph # 1.0 K/mm3 (1.2-5.4) L 09/21/19 07:00 [place] # 0.3 K/mm3 (0.0-0.8) 09/21/19 07:00 Eos # 0.2 K/mm3 (0.0-0.4) 09/21/19 07:00 Baso # 0.0 K/mm3 (0.0-0.1) 09/21/19 07:00 Seg Neutrophils % 54.2 % (40.0-70.0) 09/21/19 07:00 Seg Neutrophils # 1.9 K/mm3 (1.8-7.7) 09/21/19 07:00 PT 12.5 Sec. (12.2-14.9) 09/20/19 12:06 INR 0.92 (0.87-1.13) 09/20/19 12:06 APTT 24.2 Sec. (24.2-36.6) 09/20/19 12:06 Sodium 142 mmol/L (137-145) 09/20/19 12:07 Potassium 4.1 mmol/L (3.6-5.0) 09/20/19 12:07 Chloride 109.6 mmol/L (98-107) H 09/20/19 12:07 Carbon Dioxide 16 mmol/L (22-30) L 09/20/19 12:07 Anion Gap 21 mmol/L 09/20/19 12:07 BUN 13 mg/dL (7-17) 09/20/19 12:07 Creatinine 0.8 mg/dL (0.7-1.2) 09/20/19 12:07 Estimated GFR > 60 ml/min 09/20/19 12:07 BUN/Creatinine Ratio 16 % 09/20/19 12:07 Glucose 94 mg/dL (65-100) 09/20/19 12:07 Calcium 9.4 mg/dL (8.4-10.2) 09/20/19 12:07 Total Bilirubin 0.20 mg/dL (0.1-1.2) 09/20/19 12:07 AST 18 units/L (5-40) 09/20/19 12:07 ALT 11 units/L (7-56) 09/20/19 12:07 Alkaline Phosphatase 81 units/L (35-129) 09/20/19 12:07 Total Protein 7.5 g/dL (6.3-8.2) 09/20/19 12:07 Albumin 4.2 g/dL (3.9-5) 09/20/19 12:07 Albumin/Globulin Ratio 1.3 % 09/20/19 12:07 Lipase 45 units/L (13-60) 09/20/19 12:07 Urine Color Yellow (Yellow) 09/20/19 13:17 Urine Turbidity Clear (Clear) 09/20/19 13:17 Urine pH 8.0 (5.0-7.0) H 09/20/19 13:17 Ur Specific [place] 1.012 (1.003-1.030) 09/20/19 13:17 Urine Protein <15 mg/dl mg/dL (Negative) 09/20/19 13:17 Urine Glucose (UA) Neg mg/dL (Negative) 09/20/19 13:17 Urine Ketones Neg mg/dL (Negative) 09/20/19 13:17 Urine Blood Neg (Negative) 09/20/19 13:17 Urine Nitrite Neg (Negative) 09/20/19 13:17 Urine Bilirubin Neg (Negative) 09/20/19 13:17 Urine Urobilinogen < 2.0 mg/dL (<2.0) 09/20/19 13:17 Ur Leukocyte Esterase Neg (Negative) 09/20/19 13:17 Urine WBC (Auto) 1.0 /HPF (0.0-6.0) 09/20/19 13:17 Urine RBC (Auto) 1.0 /HPF (0.0-6.0) 09/20/19 13:17 U Epithel Cells (Auto) < 1.0 /HPF (0-13.0) 09/20/19 13:17 Active Medications - Current Medications Current Medications: Generic Name Dose Route Start Last Admin Trade Name Freq PRN Reason Stop Dose Admin Acetaminophen 650 mg 09/20/19 14:20 Tylenol PO Q4H PRN Pain MILD(1-3)/Fever >100.5/YIP Albuterol 2.5 mg 09/20/19 14:20 Proventil IH Q4HRT PRN Shortness Of Breath Amlodipine Besylate 10 mg 09/21/19 10:00 Amlodipine PO DAILY SHU Gabapentin 300 mg 09/20/19 23:00 09/20/19 23:14 Gabapentin PO 300 mg TID SHU Administration Hydralazine HCl 10 mg 09/20/19 15:11 Apresoline IV Q6HR PRN Hypertension Pantoprazole Sodium 80 mg/ 100 mls @ 10 mls/hr 09/20/19 13:00 09/20/19 14:13 Sodium Chloride IV 8 mg/hr DIRECT SHU 10 mls/hr Administration 8 MG/HR Sodium Chloride 1,000 mls @ 50 mls/hr 09/21/19 07:45 Nacl 0.9% 1000 Ml IV DIRECT SHU Morphine Sulfate 2 mg 09/20/19 15:09 09/20/19 20:49 Morphine IV 2 mg Q6H PRN Administration Pain, Moderate (4-6) Ondansetron HCl 4 mg 09/20/19 14:20 Zofran IV Q8H PRN Nausea And Vomiting Sodium Chloride 10 ml 09/20/19 22:00 09/20/19 22:24 Sodium Chloride Flush Syringe 10 Ml IV 10 ml BID SHU Administration Sodium Chloride 10 ml 09/20/19 14:20 Sodium Chloride Flush Syringe 10 Ml IV PRN PRN LINE FLUSH
[2019-09-21 08:18] LABS: BUN/Creatinine Ratio 11; Blood Urea Nitrogen 9 mg/dL (7-17); Calcium 9.4 mg/dL (8.4-10.2); Hemolysis Index 13
[2019-09-21] MEDS: GABAPENTIN 300 MG CAP PO SCH ×2 (09:22→14:05)
[2019-09-21] MEDS: PANTOPRAZOLE 80 MG in SODIUM CHLORIDE 0.9% 100 ML IV SCH (09:25)
[2019-09-21] MEDS ORDERED: amLODIPine 10 MG TAB PO SCH (10:00)
--- NOTE | 2019-09-21 11:57 | Gastroenterology Consultation ---
History of Present Illness - Reason for Consult Consult date: 09/21/19 GI bleed Requesting physician: ASHLEY SORTO - History of Present Illness Patient is a 64 y/o female who presented to ED with c/o recurrent epigastric pain and dark stool to which GI has been consulted to r/o GI bleed. Patient is previously know to our service and followed by Dr. Armstrong. She was admitted with UGI 2/2 PUD last month on 08/18/19. Last OV 09/15/19 with stool negative for H pylori. This morning patient was sitting up in bed w/o acute distress. She reports feeling better with epigastric pain improved. Reports a "dark stool" yesterday but no hematemesis, hematochezia, or further signs of bleeding overnight or this am. Denies fever, CP, SOB, wt loss, N/V, diarrhea, or constipation. Takes a daily MVI but is not sure if it includes iron. No recent Pepto-bismol. Has been compliant with taking PPI at home. No recent NSAIDs or Mobic since prior discharge (08/20/19). PMH significant for HTN and chronic back pain. Past History Past Medical History: other (See HPI) Past Surgical History: Other (Back surgery) Social history: . denies: smoking, alcohol abuse, prescription drug abuse Family history: hypertension Medications and Allergies Allergies Allergy/AdvReac Type Severity Reaction Status Date / Time No Known Allergies Allergy Unverified 05/21/13 13:47 Home Medications Medication Instructions Recorded Confirmed Last Taken Type Gabapentin [Gralise] 300 mg PO TID 03/10/16 09/20/19 Unknown History amLODIPine 10 mg PO DAILY 03/10/16 09/20/19 Unknown History traMADoL [Ultram 50 MG tab] 50 mg PO Q6HR PRN #12 tablet 03/09/18 09/20/19 Unknown Rx Pantoprazole [Protonix] 40 mg PO BID #60 tablet 08/20/19 09/20/19 Unknown Rx Active Meds: Active Medications Acetaminophen (Tylenol) 650 mg PO Q4H PRN PRN Reason: Pain MILD(1-3)/Fever >100.5/YIP Albuterol (Proventil) 2.5 mg IH Q4HRT PRN PRN Reason: Shortness Of Breath Amlodipine Besylate (Amlodipine) 10 mg PO DAILY SHU Gabapentin (Gabapentin) 300 mg PO TID [facility] Last Admin: 09/21/19 09:22 Dose: Not Given Documented by: Hydralazine HCl (Apresoline) 10 mg IV Q6HR PRN PRN Reason: Hypertension Pantoprazole Sodium 80 mg/ (Sodium Chloride) 100 mls @ 10 mls/hr IV DIRECT [facility] Last Admin: 09/21/19 09:25 Dose: 8 mg/hr, 10 mls/hr Documented by: Sodium Chloride (Nacl 0.9% 1000 Ml) 1,000 mls @ 50 mls/hr IV DIRECT [facility] Last Admin: 09/21/19 09:22 Dose: 50 mls/hr Documented by: Morphine Sulfate (Morphine) 2 mg IV Q6H PRN PRN Reason: Pain, Moderate (4-6) Last Admin: 09/20/19 20:49 Dose: 2 mg Documented by: Ondansetron HCl (Zofran) 4 mg IV Q8H PRN PRN Reason: Nausea And Vomiting Sodium Chloride (Sodium Chloride Flush Syringe 10 Ml) 10 ml IV BID [facility] Last Admin: 09/21/19 09:25 Dose: 10 ml Documented by: Sodium Chloride (Sodium Chloride Flush Syringe 10 Ml) 10 ml IV PRN PRN PRN Reason: LINE FLUSH medications reviewed/updated as required Review of Systems - Review of Systems All systems: negative Gastrointestinal: abdominal pain (epigastric-improved), other (dark stool) Exam - Constitutional Vital Signs: Temp Pulse Resp BP Pulse Ox 99.0 F 74 20 147/88 100 09/21/19 07:31 09/21/19 10:00 09/21/19 10:00 09/21/19 07:31 09/21/19 10:00 General appearance: no acute distress - EENT Eyes: PERRL, EOM intact ENT: hearing intact - Respiratory Respiratory effort: normal - Cardiovascular Rhythm: regular - Gastrointestinal General gastrointestinal: Present: soft, non-tender, non-distended, normal bowel sounds - Integumentary Integumentary: Present: warm, dry - Neurologic Neurological: alert and oriented x3 - Labs CBC & Chem 7: 09/21/19 07:00 09/21/19 07:00 Lab Results: Laboratory Results - last 24 hr 09/20/19 09/20/19 09/20/19 12:06 12:07 12:07 WBC 5.0 RBC 3.46 L Hgb 11.5 Hct 34.5 MCV 100 H MCH 33 H MCHC 33 RDW 15.5 H Plt Count 201 Lymph % (Auto) 24.8 [place] % (Auto) 8.7 H Eos % (Auto) 4.4 H Baso % (Auto) 0.5 Lymph # 1.2 [place] # 0.4 Eos # 0.2 Baso # 0.0 Seg Neutrophils % 61.6 Seg Neutrophils # 3.1 PT 12.5 INR 0.92 APTT 24.2 Sodium 142 Potassium 4.1 Chloride 109.6 H Carbon Dioxide 16 L Anion Gap 21 BUN 13 Creatinine 0.8 Estimated GFR > 60 BUN/Creatinine Ratio 16 Glucose 94 Calcium 9.4 Total Bilirubin 0.20 AST 18 ALT 11 Alkaline Phosphatase 81 Total Protein 7.5 Albumin 4.2 Albumin/Globulin Ratio 1.3 Lipase Urine Color Urine Turbidity Urine pH Ur Specific [place] Urine Protein Urine Glucose (UA) Urine Ketones Urine Blood Urine Nitrite Urine Bilirubin Urine Urobilinogen Ur Leukocyte Esterase Urine WBC (Auto) Urine RBC (Auto) U Epithel Cells (Auto) 09/20/19 09/20/19 09/21/19 12:07 13:17 07:00 WBC 3.4 L RBC 3.45 L Hgb 11.5 Hct 34.1 MCV 99 H MCH 33 H MCHC 34 RDW 15.4 H Plt Count 185 Lymph % (Auto) 30.4 [place] % (Auto) 8.6 H Eos % (Auto) 6.2 H Baso % (Auto) 0.6 Lymph # 1.0 L [place] # 0.3 Eos # 0.2 Baso # 0.0 Seg Neutrophils % 54.2 Seg Neutrophils # 1.9 PT INR APTT Sodium Potassium Chloride Carbon Dioxide Anion Gap BUN Creatinine Estimated GFR BUN/Creatinine Ratio Glucose Calcium Total Bilirubin AST ALT Alkaline Phosphatase Total Protein Albumin Albumin/Globulin Ratio Lipase 45 Urine Color Yellow Urine Turbidity Clear Urine pH 8.0 H Ur Specific [place] 1.012 Urine Protein <15 mg/dl Urine Glucose (UA) Neg Urine Ketones Neg Urine Blood Neg Urine Nitrite Neg Urine Bilirubin Neg Urine Urobilinogen < 2.0 Ur Leukocyte Esterase Neg Urine WBC (Auto) 1.0 Urine RBC (Auto) 1.0 U Epithel Cells (Auto) < 1.0 09/21/19 07:00 WBC RBC Hgb Hct MCV MCH MCHC RDW Plt Count Lymph % (Auto) [place] % (Auto) Eos % (Auto) Baso % (Auto) Lymph # [place] # Eos # Baso # Seg Neutrophils % Seg Neutrophils # PT INR APTT Sodium 140 Potassium 4.3 Chloride 106.4 Carbon Dioxide 18 L Anion Gap 20 BUN 9 Creatinine 0.8 Estimated GFR > 60 BUN/Creatinine Ratio 11 Glucose 91 Calcium 9.4 Total Bilirubin AST ALT Alkaline Phosphatase Total Protein Albumin Albumin/Globulin Ratio Lipase Urine Color Urine Turbidity Urine pH Ur Specific [place] Urine Protein Urine Glucose (UA) Urine Ketones Urine Blood Urine Nitrite Urine Bilirubin Urine Urobilinogen Ur Leukocyte Esterase Urine WBC (Auto) Urine RBC (Auto) U Epithel Cells (Auto) Assessment and Plan 1.epigastric pain-improved 2.dark stool 3.H/o PUD (recent UGIB 08/18/19) -WBC, LFTs, and lipase WNL -abd CT negative for acute process -H/H WNL (11.5/34.1)-stable; improved compared to previous (8.8/25.4 upon discharge 08/20/19) -continue to monitor H/H and transfuse as needed -BM x 1 yesterday with dark stool and no episodes today. No hematemesis or hematochezia -s/p EGD 08/18/19 that revealed an actively bleeding antral ulcer, 8 mm most likely, injected with Epi, and then clipped x 2 with hemostasis -etiology-most likely 2/2 known PUD -clinically, patient is stable with epigastric pain improved and no active signs of bleeding overnight or this am. -no plan for repeat scope at this time, unless overt bleeding develops -d/c protonix drip and transition to BID -okay to start on diet -continue to avoid NSAIDs -continue supportive care -if tolerates diet, okay to be d/c per GI standpoint on PPI BID with f/u in clinic in ~2 weeks
[2019-09-21 12:37] VITALS: BP 169/91
--- NOTE | 2019-09-21 17:12 | Discharge Summary ---
Providers - Providers Date of Admission: 09/20/19 14:20 Date of discharge: 09/21/19 Attending physician: YONI BELTRÁN 09/20/19 13:27 Consult to Physician [CONS] Stat Comment: ROSANNA Consulting Provider: ADITYA GODOY Physician Instructions: CONSULT WAS CALLED TO JACKELIN. Reason For Exam: GI Bleed 09/21/19 10:13 Physical Therapy Evaluation and Treat [CONS] Routine Comment: Reason For Exam: weakness Primary care physician: MANUELA MACK Hospitalization Condition: Stable Hospital course: --GI bleeding/melena: N.p.o. status, IV Protonix Patient's H&H and vitals are within normal range GI evaluated the patient, possible EGD today, monitor H&H, transfuse as needed --H/O Peptic ulcer disease; Patient is noncompliant with PPI therapy IV Protonix --Abdominal pain; secondary to peptic ulcer disease and GI bleeding IV Protonix, supportive care --Medical noncompliance; patient strongly advised to comply with medications and diet Verbalized understanding --Hypertensive urgency; present on admission Blood pressures moderate control, continue current antihypertensives PRN medications Disposition: DC- TO HOME OR SELFCARE Time spent for discharge: 32 min Core Measure Documentation - Palliative Care Palliative Care/ Comfort Measures: Not Applicable - Core Measures Any of the following diagnoses?: none Exam - Constitutional Vitals: Temp Pulse Resp BP Pulse Ox 99.0 F 74 20 169/91 100 09/21/19 07:31 09/21/19 12:36 09/21/19 10:00 09/21/19 12:36 09/21/19 16:45 General appearance: Present: no acute distress, well-nourished - EENT Eyes: Present: PERRL, EOM intact - Neck Neck: Present: supple, normal ROM - Respiratory Respiratory effort: normal Respiratory: bilateral: diminished, negative: rales, rhonchi, wheezing - Cardiovascular Rhythm: regular Heart Sounds: Present: S1 & S2 - Extremities Extremities: no ischemia, No edema - Abdominal General gastrointestinal: Present: soft, non-tender, non-distended, normal bowel sounds - Integumentary Integumentary: Present: clear, warm - Musculoskeletal Musculoskeletal: strength equal bilaterally - Psychiatric Psychiatric: appropriate mood/affect, cooperative - Neurologic Neurologic: CNII-XII intact, moves all extremities Plan Activity: no restrictions Diet: regular Additional Instructions: Avoid NSAID group of pain meds. If you have any bleeding .contact MD or go to ER Follow up with: MANUELA MACK MD [Primary Care Provider] - 3-5 Days ADITYA GODOY MD [Staff Physician] - 7 Days Forms: Accompanied Note Prescriptions: Pantoprazole [Protonix TAB] 40 mg PO BID #60 tablet
== END 2019-09-21 18:17 | disposition home or self-care (01) ==
LOC: ED 11:16 → INTOOBSV 14:20 → 2B-ACE 14:20
PROVIDERS: ADMIT Internal Medicine; ATTEND Internal Medicine
DX: K92.2 Gastrointestinal hemorrhage, unspecified (principal); I16.0 Hypertensive urgency; I10 Essential (primary) hypertension; Z91.14 Patient's other noncompliance with medication regimen; Z98.890 Other specified postprocedural states
CPT/HCPCS: 36415; 74177; 80048; 80053; 81001; 83690; 85025; 85610; 85730; 96361; 96365; 96366; 96375; 96376; 99285; C9113; G0378; J2270; J2405; J7030; Q9967; 96374

== ENCOUNTER 2019-09-30 07:44 | Outpatient (CLI) | payer MEDICARE ==
[~2019-09-30 07:44] MED LIST: MORPHINE 2 MG/1 ML INJ ONE
--- NOTE | 2019-09-30 09:32 | Mammography Report ---
DIGITAL SCREENING MAMMOGRAM WITH CAD, 09/30/2019 INDICATION: Routine screening mammography. TECHNIQUE: Digital bilateral 2D mammography was obtained in the craniocaudal and mediolateral obliq ue projections. This examination was interpreted with the benefit of Computer-Aided Detection analysi s. COMPARISON: 02/07/2018 FINDINGS: Breast Density: The breasts are heterogeneously dense, which may obscure small masses. A left asymmetry on the MLO view requires additional imaging. No architectural distortion or suspicio us calcifications of the left breast. There is no evidence of dominant mass, suspicious calcification s or architectural distortion in the right breast. IMPRESSION: Left asymmetry requiring additional imaging. Recommend recall for left lateral and spot c ompression MLO views and left breast ultrasound if needed. Follow up recommendation: Special View: Spot Category 0: Incomplete. Needs additional imaging evaluation and/or prior mammograms for comparison. A "normal" or negative report should not discourage follow up or biopsy of a clinically significant f inding. A written summary of these findings will be mailed to the patient. The patient will be entered into a mammography reporting system which will generate a reminder letter for the patient's next appointmen t at the appropriate interval. The [employer] recommends yearly mammograms starting at age 40 and continuing as l antoinette as a woman is in good health. Breast MRI is recommended for women with an approximate 20-25% or greater lifetime risk of breast cancer, including women with a strong family history of breast or ova jono cancer or who have been treated for Hodgkin's disease. Signer Name: Rafael Archer MD Signed: 09/30/2019 9:28 AM Workstation Name: [id number]
== END 2019-09-30 07:45 | disposition home or self-care (01) ==
LOC: MAMMO 07:44
PROVIDERS: ATTEND Internal Medicine
DX: Z12.31 Encounter for screening mammogram for malignant neoplasm of breast (principal)
CPT/HCPCS: 77067; J2270

== ENCOUNTER 2020-05-31 17:43 | Emergency (ER) | payer MEDICARE ==
[~2020-05-31 17:43] MED LIST changes: +KETOROLAC 30 MG/1 ML INJ ONE; -MORPHINE 2 MG/1 ML INJ ONE; +ONDANSETRON 4 MG/2 ML INJ ONE; +SODIUM CHLORIDE 0.9% 1000 ML 1,000 ML ONE
--- NOTE | 2020-06-01 17:42 | Cat Scan Report ---
CT ABD AND PELVIS INDICATION: Abdominal pain. TECHNIQUE: All CT scans at this location are performed using the following dose modulation technique: Automated exposure control. CONTRAST: None. COMPARISON: None available. CT ABDOMEN: The parenchymal organs are unremarkable in appearance. Negative for abdominal mass, flui d or inflammation. The bowel is not dilated or thickened. Scattered colonic diverticula are noninflam ed. CT PELVIS: Negative for mass, fluid or inflammation. Status post previous hysterectomy. IMPRESSION: Negative for obstruction or localized inflammation. Signer Name: Gerhard Redman MD Signed: 05/31/2020 2:56 PM Workstation Name: [id number]
== END 2020-05-31 18:32 ==
LOC: ED 17:43
DX: N20.0 Calculus of kidney (principal)
CPT/HCPCS: 74176; 99283; J1885; J2405; J7030

== ENCOUNTER 2020-07-11 10:34 | Emergency (ER) | payer MEDICARE ==
[2020-07-11 11:12] VITALS: BP 172/96
[2020-07-11] MEDS ORDERED: traMADol 50 MG TAB PO ONE (11:51)
[2020-07-11] MEDS ORDERED: KETOROLAC 60 MG/2 ML INJ IM ONE (11:51)
[2020-07-11] MEDS ORDERED: dexAMETHasone 20 MG/5 ML VIAL IM ONE (11:51)
--- NOTE | 2020-07-11 13:15 | Cat Scan Report ---
CT LUMBAR SPINE WITHOUT CONTRAST HISTORY: Low back pain radiating down right leg COMPARISON: CT scan of the abdomen from 05/31/2020 TECHNIQUE: CT images of the lumbar spine were obtained without contrast. Sagittal and coronal reform ats were post-processed.All CT scans at this location are performed using CT dose reduction for ALARA by means of automated exposure control. CONTRAST: None. FINDINGS: Alignment: Normal. No traumatic subluxation. Vertebrae:No significant abnormality. No fracture. Disc Spaces: T10-T11: Normal T11-T12: shallow bulging disc; neuroforamina are normal T12-L1: Normal L1-L2: Normal L2-L3: Normal L3-L4: Loss of disc height; bony spur extending bilaterally; lateral recesses and the neuroforamina a re stenotic L4-L5: Laminectomy changes; posterior lumbar interbody fusion; neuroforamina are normal L5-S1: Laminectomy changes; posterior lumbar interbody fusion; neuroforamina are normal Facet Joints:No significant abnormality. Additional Findings: Spinal cord stimulator; nonobstructive renal calculi IMPRESSION: Lumbar interbody fusion at L4-L5 and L5-S1 disc levels Degenerative disc disease with bony spur extending laterally bilaterally at L3-L4 disc level resultin g in bilateral foraminal and lateral recess stenoses Signer Name: Kathy Harmon MD Signed: 07/11/2020 1:11 PM Workstation Name: [id number]
--- NOTE | 2020-07-11 13:52 | Emergency Department Report ---
ED Back Pain/Injury HPI - General Chief Complaint: Back Pain/Injury Stated Complaint: STOMACH/RT SIDE PAIN Time Seen by Provider: 07/11/20 11:51 Source: patient Limitations: No Limitations - History of Present Illness Initial Comments: Patient is a 64-year-old female presents emergency room with complaints of right lower back pain that exacerbated a few days ago. She states that radiates down her right leg. She states that she has a history of a back surgery and of a spinal stimulator. She denies any acute fall or injury. She states that she has been evaluated for this pain in the past in the emergency department and was ruled out for kidney stones. She states that she is also seen her primary care doctor and had her urine tested 3 times which showed no signs of UTI. She denies any fever, nausea, vomiting, diarrhea, dysuria, dark urine, odor to the urine, numbness, weakness, bowel or bladder incontinence. She states that she also has a past medical history of PUD and hypertension. She denies any medication allergies. - Related Data Home Medications Medication Instructions Recorded Confirmed Last Taken Gabapentin [Gralise] 300 mg PO TID 03/10/16 09/20/19 Unknown amLODIPine 10 mg PO DAILY 03/10/16 09/20/19 Unknown Previous Rx's Medication Instructions Recorded Last Taken Type traMADoL [Ultram 50 MG tab] 50 mg PO Q6HR PRN #12 tablet 03/09/18 Unknown Rx Pantoprazole [Protonix TAB] 40 mg PO BID #60 tablet 09/21/19 Unknown Rx Meloxicam [Mobic] 7.5 mg PO QDAY #10 tablet 07/11/20 Unknown Rx Menthol/Camphor [[place] 1 applicatio TP BID #18 oint...g. 07/11/20 Unknown Rx Ointment] traMADoL [Ultram 50 MG tab] 50 mg PO Q8HR PRN #12 tablet 07/11/20 Unknown Rx Allergies Allergy/AdvReac Type Severity Reaction Status Date / Time No Known Allergies Allergy Unverified 05/21/13 13:47 ED Review of Systems ROS: Stated complaint: STOMACH/RT SIDE PAIN Other details as noted in HPI Comment: All other systems reviewed and negative ED Past Medical Hx - Past Medical History Previous Medical History?: Yes Hx Hypertension: Yes Hx Congestive Heart Failure: No Hx Diabetes: No Hx Asthma: No Hx COPD: No Additional medical history: Chronic back pain, Stomach ulcers - Surgical History Past Surgical History?: Yes Additional Surgical History: Back surgery - Social History Smoking Status: Never Smoker - Medications Home Medications: Home Medications Medication Instructions Recorded Confirmed Last Taken Type Gabapentin [Gralise] 300 mg PO TID 03/10/16 09/20/19 Unknown History amLODIPine 10 mg PO DAILY 03/10/16 09/20/19 Unknown History traMADoL [Ultram 50 MG tab] 50 mg PO Q6HR PRN #12 tablet 03/09/18 09/20/19 Unknown Rx Pantoprazole [Protonix TAB] 40 mg PO BID #60 tablet 09/21/19 Unknown Rx Meloxicam [Mobic] 7.5 mg PO QDAY #10 tablet 07/11/20 Unknown Rx Menthol/Camphor [[place] 1 applicatio TP BID #18 oint...g. 07/11/20 Unknown Rx Ointment] traMADoL [Ultram 50 MG tab] 50 mg PO Q8HR PRN #12 tablet 07/11/20 Unknown Rx ED Physical Exam - General Limitations: No Limitations General appearance: alert, in no apparent distress - Head Head exam: Present: atraumatic, normocephalic - Eye Eye exam: Present: normal appearance - ENT ENT exam: Present: mucous membranes moist - Neck Neck exam: Present: normal inspection, full ROM. Absent: tenderness - Respiratory Respiratory exam: Present: normal lung sounds bilaterally. Absent: respiratory distress, wheezes, rales, rhonchi, stridor, chest wall tenderness, accessory muscle use, decreased breath sounds, prolonged expiratory - Cardiovascular Cardiovascular Exam: Present: regular rate, normal rhythm, normal heart sounds. Absent: systolic murmur, diastolic murmur, rubs, gallop - Back Exam Back exam: Present: normal inspection, full ROM, paraspinal tenderness (right lumbar paraspinal muscular ttp), vertebral tenderness (lumbar) - Neurological Exam Neurological exam: Present: alert, oriented X3, CN II-XII intact, normal gait. Absent: motor sensory deficit - Psychiatric Psychiatric exam: Present: normal affect, normal mood - Skin Skin exam: Present: warm, dry, intact ED Course Vital Signs 07/11/20 11:10 Temperature 98 F Pulse Rate 65 Respiratory 16 Rate Blood Pressure 172/96 [Right] O2 Sat by Pulse 100 Oximetry ED Medical Decision Making - Radiology Data Radiology results: report reviewed Ordering Physician: LEANA BREWSTER Date of Service: 07/11/20 Procedure(s): CT lumbar spine wo con Accession Number(s): [id number] cc: LEANA BREWSTER CT LUMBAR SPINE WITHOUT CONTRAST HISTORY: Low back pain radiating down right leg COMPARISON: CT scan of the abdomen from 05/31/2020 TECHNIQUE: CT images of the lumbar spine were obtained without contrast. Sagittal and coronal reformats were post-processed.All CT scans at this location are performed using CT dose reduction for ALARA by means of automated exposure control. CONTRAST: None. FINDINGS: Alignment: Normal. No traumatic subluxation. Vertebrae:No significant abnormality. No fracture. Disc Spaces: T10-T11: Normal T11-T12: shallow bulging disc; neuroforamina are normal T12-L1: Normal L1-L2: Normal L2-L3: Normal L3-L4: Loss of disc height; bony spur extending bilaterally; lateral recesses a nd the neuroforamina are stenotic L4-L5: Laminectomy changes; posterior lumbar interbody fusion; neuroforamina are normal L5-S1: Laminectomy changes; posterior lumbar interbody fusion; neuroforamina are normal Facet Joints:No significant abnormality. Additional Findings: Spinal cord stimulator; nonobstructive renal calculi IMPRESSION: Lumbar interbody fusion at L4-L5 and L5-S1 disc levels Degenerative disc disease with bony spur extending laterally bilaterally at L3- L4 disc level resulting in bilateral foraminal and lateral recess stenoses Signer Name: Kathy Harmon MD Signed: 07/11/2020 1:11 PM Workstation Name: [id number] Transcribed By: BS Dictated By: Kathy Fleming MD Electronically Authenticated By: Kathy Fleming MD Signed Date/Time: 07/11/20 1311 DD/ 1301 TD/TT: - Medical Decision Making Patient is a 64-year-old female presents emergency room with complaints of right lower back pain that exacerbated a few days ago. She states that radiates down her right leg. She states that she has a history of a back surgery and of a spinal stimulator. She denies any acute fall or injury. She states that she has been evaluated for this pain in the past in the emergency department and was ruled out for kidney stones. She states that she is also seen her primary care doctor and had her urine tested 3 times which showed no signs of UTI. She denies any fever, nausea, vomiting, diarrhea, dysuria, dark urine, odor to the urine, numbness, weakness, bowel or bladder incontinence. She states that she also has a past medical history of PUD and hypertension. She denies any medication allergies. On exam patient has midline and paraspinal lumbar tenderness palpation, no deformities, neurovascularly intact. CT lumbar spine: Lumbar interbody fusion at L4-L5 and L5-S1 disc levels Degenerative disc disease with bony spur extending laterally bilaterally at L3-L4 disc level resulting in bilateral foraminal and lateral recess stenoses. Patient given Toradol, dexamethasone, tramadol while in the emergency department as she did not drive and symptoms significantly improved and she was feeling much better and ready to go home. Discussed all findings with patient and patient was given her CT report. Symptoms could be related to radiculopathy versus sciatica. Patient gi manjeet prescription for [place] balm ointment, Mobic, tramadol. Advised patient Please take medication as prescribed as needed. Do not drive or operate machinery while taking severe pain medication. May use ice pack, heating pad, rest, Epsom bath. Follow-up with orthopedic/spine doctor. Return to emergency room for any new or worsening symptoms. - Differential Diagnosis Strain, sprain, fx, dislocation, DDD, bulging disc, sciatica, radiculopathy Critical care attestation.: If time is entered above; I have spent that time in minutes in the direct care of this critically ill patient, excluding procedure time. ED Disposition Clinical Impression: Foraminal stenosis of lumbar region DDD (degenerative disc disease) Qualifiers: Spinal region: lumbosacral Qualified Code(s): M51.37 - Other intervertebral disc degeneration, lumbosacral region Back pain Qualifiers: Back pain location: low back pain Chronicity: acute Back pain laterality: right Sciatica presence: with sciatica Sciatica laterality: sciatica of right side Qualified Code(s): M54.41 - Lumbago with sciatica, right side Disposition: DC- TO HOME OR SELFCARE Is pt being admited?: No Does the pt Need Aspirin: No Condition: Stable Instructions: Radicular Pain, Sciatica, Spinal Stenosis, [id number] Additional Instructions: Please take medication as prescribed as needed. Do not drive or operate machinery while taking severe pain medication. May use ice pack, heating pad, rest, Epsom bath. Follow-up with orthopedic/spine doctor. Return to emergency room for any new or worsening symptoms. Prescriptions: Meloxicam [Mobic] 7.5 mg PO QDAY #10 tablet Menthol/Camphor [[place] Tow Ointment] 1 applicatio TP BID #18 oint...g. traMADoL [Ultram 50 MG tab] 50 mg PO Q8HR PRN #12 tablet PRN Reason: Pain , Severe (7-10) Referrals: PRIMARY CARE, [Primary Care Provider] - 2-3 Days PARISH WADDELL II, MD [Staff Physician] - 2-3 Days [facility] [Provider Group] - 2-3 Days Time of Disposition: 13:50 Print Language: NEPALI
== END 2020-07-11 14:03 | disposition home or self-care (01) ==
LOC: ED 10:34
DX: M51.36 Other intervertebral disc degeneration, lumbar region (principal); M48.061 Spinal stenosis, lumbar region without neurogenic claudication; M54.5 Low back pain; I10 Essential (primary) hypertension; Z98.890 Other specified postprocedural states; Z79.899 Other long term (current) drug therapy
CPT/HCPCS: 72131; 96372; 99283; J1100; J1885

== ENCOUNTER 2021-02-26 13:41 | Emergency (ER) | payer MEDICARE, OTHER ==
--- NOTE | 2021-02-26 15:33 | Event Note ---
ED Screening Note Date of service: 02/26/21 Time: 15:33 ED Screening Note: X2 days She admits lower abdominal pain and has left CVA tenderness on exam No fever History of hypertension This in patient patient complains of dysuria itial assessment/diagnostic orders/clinical plan/treatment(s) is/are subject to change based on patients health status, clinical progression and re-assessment by fellow clinical providers in the ED. Further treatment and workup at subsequent clinical providers discretion. Patient/guardian urged not to elope from the ED as their condition may be serious if not clinically assessed and managed. Initial orders include: Labs
[2021-02-26 15:35] VITALS: BP 167/93
[2021-02-26 17:13] LABS: Basophils % (Auto) 0.4 % (0.0-1.8); Eosinophils # (Auto) 0.1 K/mm3 (0.0-0.4); Eosinophils % (Auto) 2.2 % (0.0-4.3); Hematocrit 35.6 % (30.3-42.9); Hemoglobin 12.1 gm/dl (10.1-14.3); Lymphocytes # (Auto) 1.5 K/mm3 (1.2-5.4); Lymphocytes % (Auto) 30.1 % (13.4-35.0); Mean Corpuscular HGB Conc 34 % (30-34); Mean Corpuscular Volume 104 fl (79-97); Monocytes # (Auto) 0.6 K/mm3 (0.0-0.8); Platelet Count 226 K/mm3 (140-440); Red Blood Count 3.41 M/mm3 (3.65-5.03); Red Cell Distribution Width 13.6 % (13.2-15.2)
[2021-02-26 17:33] LABS: Alanine Aminotransferase 8 units/L (7-56); Albumin 3.7 g/dL (3.9-5); BUN/Creatinine Ratio 10; Blood Urea Nitrogen 9 mg/dL (7-17); Calcium 8.5 mg/dL (8.4-10.2); Hemolysis Index 5
[2021-02-26 17:57] LABS: Bacteria,Urine 4+ /HPF (Negative); Bilirubin,Urine NEG (Negative); Blood,Urine MOD (Negative); Color,Urine Yellow (Yellow); Urobilinogen,Urine < 2.0 mg/dL (<2.0)
[2021-02-26 17:58] LABS: WBC,Urine > 182.0 /HPF (0.0-6.0)
[2021-02-26] MEDS ORDERED: ONDANSETRON 4 MG ODT TAB PO ONE (23:54)
[2021-02-26] MEDS ORDERED: LIDOCAINE-MPF (1%) 10 MG/1 ML VIAL 5 ML INFILTRATI ONE (23:54)
[2021-02-26] MEDS ORDERED: KETOROLAC 30 MG/1 ML INJ IM ONE (23:54)
--- NOTE | 2021-02-27 00:31 | Emergency Department Report ---
ED Female HPI - General Chief complaint: Abdominal Pain Stated complaint: BURNING WHEN URINATE Time Seen by Provider: 02/26/21 15:32 Source: patient Mode of arrival: Ambulatory Limitations: No Limitations - History of Present Illness Initial comments: Patient is a 65-year-old -[place]ym[place] female with a history of hypertension, chronic low back pain and peptic ulcer disease who presents to the ED with complaint of acute onset persistent dysuria, urinary frequency and urgency, suprapubic pressure and pain and low back pain for the last 1 week, worse in the last 2 days. Patient states that she has not been able to sit still because of persistent dysuria and urinary frequency and urgency. Patient denies vaginal bleeding, vaginal discharge, hematuria, dyspareunia, chest pain, shortness of breath, traumatic injury, heavy lifting, nausea and vomiting or diarrhea, fever and chills. MD Complaint: dysuria, pelvic pain, other (Urinary frequency and urgency) -: Sudden, week(s) (1) Location: suprapubic Radiation: other (Low back) Severity: severe Severity scale (0 -10): 7 Quality: sharp, burning Consistency: constant Improves with: none Worsens with: urination Are you Now?: No Associated Symptoms: denies other symptoms, abdominal pain (Suprapubic pain), dysuria. denies: vaginal discharge, vaginal bleeding, nausea/vomiting, feve r/chills, headaches, loss of appetite, hematuria, rash, seizure, shortness of breath, syncope, weakness - Related Data Sexually active: Yes Home Medications Medication Instructions Recorded Confirmed Last Taken Gabapentin [Gralise] 300 mg PO TID 03/10/16 09/20/19 Unknown amLODIPine 10 mg PO DAILY 03/10/16 09/20/19 Unknown Previous Rx's Medication Instructions Recorded Last Taken Type traMADoL [Ultram 50 MG tab] 50 mg PO Q6HR PRN #12 tablet 03/09/18 Unknown Rx Pantoprazole [Protonix TAB] 40 mg PO BID #60 tablet 09/21/19 Unknown Rx Meloxicam [Mobic] 7.5 mg PO QDAY #10 tablet 07/11/20 Unknown Rx Menthol/Camphor [[place] 1 applicatio TP BID #18 oint...g. 07/11/20 Unknown Rx Ointment] Baclofen 20 mg PO Q12H PRN #20 tablet 02/27/21 Unknown Rx Sulfamethoxazole/Trimethoprim 1 each PO Q12H #20 tablet 02/27/21 Unknown Rx [Bactrim DS TAB] traMADoL [Ultram 50 MG tab] 50 mg PO Q8HR PRN #12 tablet 02/27/21 Unknown Rx Allergies Allergy/AdvReac Type Severity Reaction Status Date / Time No Known Allergies Allergy Verified 02/26/21 15:30 ED Review of Systems ROS: Stated complaint: BURNING WHEN URINATE Other details as noted in HPI Constitutional: denies: chills, fever Eyes: denies: eye pain, eye discharge, vision change ENT: denies: ear pain, throat pain Respiratory: denies: cough, shortness of breath, wheezing Cardiovascular: denies: chest pain, palpitations Endocrine: no symptoms reported Gastrointestinal: abdominal pain (Suprapubic pain). denies: nausea, vomiting, diarrhea Genitourinary: urgency, dysuria, frequency. denies: discharge Musculoskeletal: back pain (Low back pain). denies: joint swelling, arthralgia Skin: denies: rash, lesions Neurological: denies: headache, weakness, paresthesias Psychiatric: denies: anxiety, depression Hematological/Lymphatic: denies: easy bleeding, easy bruising ED Past Medical Hx - Past Medical History Hx Hypertension: Yes Hx Congestive Heart Failure: No Hx Diabetes: No Hx Asthma: No Hx COPD: No Additional medical history: Chronic back pain, Stomach ulcers - Surgical History Additional Surgical History: Back surgery - Social History Smoking Status: Never Smoker - Medications Home Medications: Home Medications Medication Instructions Recorded Confirmed Last Taken Type Gabapentin [Gralise] 300 mg PO TID 03/10/16 09/20/19 Unknown History amLODIPine 10 mg PO DAILY 03/10/16 09/20/19 Unknown History traMADoL [Ultram 50 MG tab] 50 mg PO Q6HR PRN #12 tablet 03/09/18 09/20/19 Unknown Rx Pantoprazole [Protonix TAB] 40 mg PO BID #60 tablet 09/21/19 Unknown Rx Meloxicam [Mobic] 7.5 mg PO QDAY #10 tablet 07/11/20 Unknown Rx Menthol/Camphor [[place] 1 applicatio TP BID #18 oint...g. 07/11/20 Unknown Rx Ointment] Baclofen 20 mg PO Q12H PRN #20 tablet 02/27/21 Unknown Rx Sulfamethoxazole/Trimethoprim 1 each PO Q12H #20 tablet 02/27/21 Unknown Rx [Bactrim DS TAB] traMADoL [Ultram 50 MG tab] 50 mg PO Q8HR PRN #12 tablet 02/27/21 Unknown Rx ED Physical Exam - General Limitations: No Limitations General appearance: alert, in no apparent distress - Head Head exam: Present: atraumatic, normocephalic, normal inspection - Eye Eye exam: Present: normal appearance, PERRL, EOMI Pupils: Present: normal accommodation - ENT ENT exam: Present: normal exam, normal orophraynx, mucous membranes moist, TM's normal bilaterally, normal external ear exam - Neck Neck exam: Present: normal inspection, full ROM - Respiratory Respiratory exam: Present: normal lung sounds bilaterally. Absent: respiratory distress, wheezes, rales, rhonchi, chest wall tenderness, accessory muscle use, decreased breath sounds, prolonged expiratory, other - Cardiovascular Cardiovascular Exam: Present: regular rate, normal rhythm, normal heart sounds. Absent: systolic murmur, diastolic murmur, rubs, gallop - GI/Abdominal GI/Abdominal exam: Present: soft, tenderness (Palpable mild suprapubic tenderness), normal bowel sounds. Absent: guarding, rebound, rigid, hyperactive bowel sounds, organomegaly - Bi-manual exam: Present: other (Pelvic exam deferred at this time) - Extremities Exam Extremities exam: Present: normal inspection, full ROM, normal capillary refill - Back Exam Back exam: Present: normal inspection, full ROM, tenderness (Palpable lumbosacral paraspinal musculoskeletal tenderness), CVA tenderness (R) (Right CVA tenderness), CVA tenderness (L) (Left CVA tenderness), muscle spasm, paraspinal tenderness. Absent: vertebral tenderness - Neurological Exam Neurological exam: Present: alert, oriented X3, CN II-XII intact, normal gait, reflexes normal - Psychiatric Psychiatric exam: Present: normal affect, normal mood - Skin Skin exam: Present: warm, dry, intact, normal color. Absent: rash ED Course Vital Signs 02/26/21 15:34 Temperature 98.3 F Pulse Rate 74 Respiratory 20 Rate Blood Pressure 167/93 O2 Sat by Pulse 98 Oximetry ED Medical Decision Making - Lab Data Result diagrams: 02/26/21 16:55 02/26/21 16:55 - Medical Decision Making This is a 65-year-old -[place] female with a history of hypertension, chronic low back pain and peptic ulcer disease who presents to the ED with complaint of acute onset persistent dysuria, urinary frequency and urgency, suprapubic pressure and pain and low back pain for the last 1 week, worse in the last 2 days. Patient states that she has not been able to sit still because of persistent dysuria and urinary frequency and urgency. In the ED, patient is alert and oriented x3 and is not in any distress but appears to be in significant pain. Lab test results were reviewed and are all nonactionable except for significant urinary tract infection in urinalysis. Patient received Rocephin 1 g intramuscular injection with Toradol 30 mg intramuscular injection. On reevaluation, patient pain is well controlled medication. Patient was discharged home on pain medication and oral antibiotics and was advised to foll ow-up with her primary care physician in 7 to 10 days for reevaluation. Patient is advised return to the ED immediately if symptoms get worse. - Differential Diagnosis Cystitis; UTI; pyelonephritis; uterine fibroid; kidney stone; chronic pain Critical care attestation.: If time is entered above; I have spent that time in minutes in the direct care of this critically ill patient, excluding procedure time. ED Disposition Clinical Impression: Acute urinary tract infection, Spasm of muscle of lower back, Chronic bilateral low back pain without sciatica Disposition: - TO HOME OR SELFCARE Is pt being admited?: No Does the pt Need Aspirin: No Condition: Stable Instructions: Abdominal Pain (ED), Muscle Cramps and Spasms, [id number], Urinary Tract Infection, Adult, [id number], Chronic Back Pain, [id number] Additional Instructions: All lab test results were reviewed and are all nonactionable except for urinalysis that showed significant urinary tract infection. Therefore take medications with food, drink plenty of fluids and follow-up with your primary care physician in 5 to 7 days for reevaluation. Return to the ED immediately if symptoms get worse. Prescriptions: Baclofen 20 mg PO Q12H PRN #20 tablet PRN Reason: Muscle Spasm Sulfamethoxazole/Trimethoprim [Bactrim DS TAB] 1 each PO Q12H #20 tablet traMADoL [Ultram 50 MG tab] 50 mg PO Q8HR PRN #12 tablet PRN Reason: Pain , Severe (7-10) Referrals: [facility] [Provider Group] - 3-5 Days Forms: Work/School Release Form(ED) Time of Disposition: 00:33 Print Language: KAZAKH
== END 2021-02-27 00:54 | disposition home or self-care (01) ==
LOC: ED 13:41
DX: N39.0 Urinary tract infection, site not specified (principal); M54.5 Low back pain; G89.29 Other chronic pain; M62.830 Muscle spasm of back; I10 Essential (primary) hypertension; Z79.899 Other long term (current) drug therapy; Z98.890 Other specified postprocedural states
CPT/HCPCS: 36415; 80053; 81001; 85025; 87076; 87086; 87186; 96372; 99283; J0696; J1885; Q0162